=== PATIENT | female | born 1975 | race African-American/Black ===

== ENCOUNTER 2017-11-06 02:35 | Emergency (ER) | payer SELFPAY ==
--- NOTE | 2017-11-06 08:36 | RAD ---
CHEST PA AND LATERAL: Date: 11/06/17 HISTORY: 42-year-old female with history of cough. In addition, there is left rib pain and chest pain with cou ghing since Saturday. FINDINGS: Patchy alveolar parenchymal changes noted in the anterior aspect of the left lower lobe, evidence for left lower lobe pneumonia. Heart size is normal. The right lung is clear. No significant pleural eff usion. IMPRESSION: Patchy alveolar parenchymal changes anterior aspect left lower lobe, evidence for left lower lobe pne umonia. Findings were discussed with Dr. Blunt in the ER at 0740 hours. CODE CR. POS: OFF
== END 2017-11-06 04:25 | disposition home or self-care (01) ==
LOC: ERS 02:35
DX: J20.9 Acute bronchitis, unspecified (principal); Z71.6 Tobacco abuse counseling; F17.210 Nicotine dependence, cigarettes, uncomplicated; Z79.899 Other long term (current) drug therapy
CPT/HCPCS: 71046; 93005; 99406

== ENCOUNTER 2017-11-06 18:15 | Observation (INO) | payer SELFPAY ==
[2017-11-06 19:08] LABS: #Eosinphils 0.2 thou/uL (0.0-0.7); #Lymphocytes 1.5 thou/uL (1.20-3.40); #Monocytes 0.9 thou/uL (0.11-0.59); #Neutrophils 8.3 thou/uL (1.40-6.50); %Basophils 0.2 % (0.0-1.0); %Eosinophils 2.1 % (0.0-10.0); %Lymphocytes 13.9 % (21.0-51.0); %Monocytes 8.2 % (0.0-10.0); %Neutrophils 75.6 % (42.0-75.0); Hemoglobin 10.8 g/dL (12.0-16.0); Mean Corpuscular HGB CONC 35.4 g/dL (32.0-36.0); Mean Corpuscular Hemoglobin 34.4 pg (27.0-31.0); Mean Corpuscular Volume 97.3 fL (78.0-98.0); Mean Platelet Volume 6.8 fL (7.4-10.4); Platelet Count 239 thou/uL (130-400); RBC Distribution Width 14.3 % (11.5-14.5); Red Blood Cell (RBC) Count 3.13 mill/uL (4.20-5.40); White Blood Cell (WBC) Count 10.9 thou/uL (4.8-10.8)
[2017-11-06 19:15] LABS: MDiff Complete? YES; PLT Morphology Comment Appears Adequate; Polychromasia SLIGHT = 2-3 cells (100X) (0-2/hpf); Target Cells SLIGHT = 2-5 cells (100X) (0-1/hpf)
[2017-11-06 19:22] LABS: ALT (SGPT) 15 U/L (8-55); AST (SGOT) 30 U/L (5-34); Albumin 3.5 g/dL (3.5-5.0); Alkaline Phosphatase 173 U/L (40-150); Anion Gap 12 mmol/L (10-20); BUN (Urea Nitrogen) 7 mg/dL (7.0-18.7); Bilirubin, Total 1.3 mg/dL (0.2-1.2); Calc. Creatinine Clearance 0 mL/min (70-130); Calcium 8.6 mg/dL (7.8-10.44); Carbon Dioxide 24 mmol/L (22-29); Chloride 106 mmol/L (98-107); Estimated GFR-MDRD Greater than 90; Globulin 3.5 g/dL (2.4-3.5); Glucose 101 mg/dL (70-105); Potassium 3.5 mmol/L (3.5-5.1); Sodium 138 mmol/L (136-145)
[2017-11-06 19:30] LABS: Reticulocyte Count 2.5 % (0.5-1.5)
[2017-11-06] MEDS ORDERED: cefTRIAXone\\ROCEPHIN 1 GM VIAL ONE (22:04)
[2017-11-06] MEDS ORDERED: Ondansetron ODT 4 MG TAB PO PRN (23:48)
[2017-11-06] MEDS ORDERED: Docusate 100 MG CAP PO PRN (23:48)
[2017-11-06] MEDS: Albuterol Sulfate 2.5 mg/3 ml Neb NEB SCH (23:55)
[2017-11-06] MEDS ORDERED: Azithromycin 500 MG in Sodium Chloride 0.9% 250 ML 250 ML IVPB SCH (23:59)
[2017-11-07] VITALS: BMI 21.9
[2017-11-07] MEDS ORDERED: Ibuprofen 600 MG TAB PO PRN (00:11)
[2017-11-07] MEDS: Benzonatate 100 MG CAP PO PRN ×2 (00:22→07:55)
[2017-11-07] MEDS: Acetaminophen 325 MG TAB PO PRN ×2 (00:22→07:54)
--- NOTE | 2017-11-07 02:24 | PDOC.FPRHP ---
- History of Present Illness Chief Complaint: cough History of Present Illness: Patient seen and examined on 11/06/17. 42 yo BF with h/o sickle cell trait presented c/o cough and left flank/back pain since Saturday, productive of yellow sputum. (+) chills. Denies any nasal congestion, runny nose, ear pain. Mild SOB. Reports chest pain worse with deep breath, movement or coughing. Denies any ill contacts. Seen in ER earlier and diagnosed with bronchitis and given prescription for albuterol MDI, Zithromax and tessalon perles. States atht started the medication as prescribed with improvement in symptoms especially with inhaler. Patient called to return to ER due to abnormal chest X-ray showed left lower infiltrate c/w pneumnia. - Allergies/Adverse Reactions Allergies Allergy/AdvReac Type Severity Reaction Status Date / Time No Known Drug Allergies Allergy Verified 11/07/17 00:02 - Home Medications Medication Instructions Recorded Confirmed Type Iron 65 mg PO DAILY 11/07/17 11/07/17 History Naproxen Sodium [Aleve] 220 mg PO TID PRN 11/07/17 11/07/17 History - History PMHx: Sickle cell trait PSHx: BTL and finger fracture pin placement FHx: noncontributory Social: (+) tob 1/2 pack/day x 6 years; denies any alcohol or drugs - Review of Systems General: reports: fever/chills, night sweats. denies: weight/appetite/sleep changes, fatigue Eyes: denies: eye pain, vision changes ENT: denies: nasal congestion, rhinorrhea Respiratory: reports: cough, shortness of breath. denies: congestion Cardiovascular: reports: chest pain. denies: palpitation, edema, orthopnea Gastrointestinal: denies: nausea, vomiting, diarrhea, constipation, abdominal pain Genitourinary: denies: dysuria, discharge Skin: denies: rashes, lesions Musculoskeletal: denies: pain, tenderness, swelling Neurological: denies: numbness, seizure Psychological: denies: anxiety, depression - Vital signs BP: 116/63 HR: 84 RR: 18 Tmax: 98.8 Pox: 98% on RA Wt: 64 kg - Physical Exam Constitutional: NAD, awake, alert and oriented, well developed HEENT: normocephalic and atraumatic, PERRLA, EOMI, conjunctiva clear, TM's clear and intact, normal nasal mucosa, MMM, oropharynx clear Neck: supple, FROM, no LAD, no thyromegaly Heart: RRR, normal S1/S2, no murmurs/rubs/gallops, pulses present, no edema Lungs: no respiratory distress, good air movement -Lungs: (+) mild expiratory wheezes Abdomen: soft, non-tender, bowel sounds present, no masses/distention Musculoskeletal: normal structure, normal tone, ROM grossly normal Neurological: no focal deficit, CN II-XII intact Skin: no rash/lesions, good turgor Heme/Lymphatic: no unusual bruising or bleeding Psychiatric: normal mood and affect, good judgment and insight FMR H&P: Results - Labs Result Diagrams: 11/06/17 18:50 11/06/17 18:50 Lab results: WBC 10.9 thou/uL (4.8-10.8) H 11/06/17 18:50 Hgb 10.8 g/dL (12.0-16.0) L 11/06/17 18:50 Hct 30.5 % (36.0-47.0) L 11/06/17 18:50 MCV 97.3 fL (78.0-98.0) 11/06/17 18:50 Plt Count 239 thou/uL (130-400) 11/06/17 18:50 Neutrophils % 75.6 % (42.0-75.0) H 11/06/17 18:50 Sodium 138 mmol/L (136-145) 11/06/17 18:50 Potassium 3.5 mmol/L (3.5-5.1) 11/06/17 18:50 Chloride 106 mmol/L (98-107) 11/06/17 18:50 Carbon Dioxide 24 mmol/L (22-29) 11/06/17 18:50 BUN 7 mg/dL (7.0-18.7) 11/06/17 18:50 Creatinine 0.59 mg/dL (0.6-1.1) L 11/06/17 18:50 Glucose 101 mg/dL (70-105) 11/06/17 18:50 Calcium 8.6 mg/dL (7.8-10.44) 11/06/17 18:50 Total Bilirubin 1.3 mg/dL (0.2-1.2) H 11/06/17 18:50 AST 30 U/L (5-34) 11/06/17 18:50 ALT 15 U/L (8-55) 11/06/17 18:50 Alkaline Phosphatase 173 U/L (40-150) H 11/06/17 18:50 Serum Total Protein 7.0 g/dL (6.0-8.3) 11/06/17 18:50 Albumin 3.5 g/dL (3.5-5.0) 11/06/17 18:50 - Radiology Interpretation Chest x-ray Status: image reviewed by me (Left lower lobe infiltrate) FMR H&P: A/P - Problem List (1) Community acquired pneumonia Current Visit: Yes Status: Acute Code(s): J18.9 - PNEUMONIA, UNSPECIFIED ORGANISM Qualifiers: Laterality: left Lung location: lower lobe of lung Qualified Code(s): J18.1 - Lobar pneumonia, unspecified organism Assessment and Plan: Started on Rocephin and zithromax. Transition to po zithromax in AM. Albuterol nebs q6 hours. (2) Sickle cell trait Current Visit: Yes Status: Chronic Code(s): D57.3 - SICKLE-CELL TRAIT Assessment and Plan: Mild anemia; continue iron tablets - Plan Disposition/LOS: Anticipate transition to po abx and d/c home in 1-2 days FMR H&P: Upper Level - Plan Date/Time: 11/07/17 0221 I, [], have evaluated this patient and agree with findings/plan as outlined by internal control analyst resident. Pertinent changes/additions are listed here.
--- NOTE | 2017-11-07 06:07 | PDOC.FM ---
- Subjective Subjective: No events overnight. She states cough has improved and she is feeling better. She notes pain on left lower back upon deep inspiration but this has improved. She denies SOB, chest pain, NVD, or subjective fever. - Objective MAR Reviewed: Yes Vital Signs & Weight: Vital Signs (12 hours) Temp Pulse Resp BP Pulse Ox 11/06/17 23:55 81 16 98 11/06/17 23:45 97.9 F 81 20 105/71 99 11/06/17 23:25 97.9 F 81 20 Weight Weight 63.503 kg I&O: 11/05/17 11/06/17 11/07/17 06:59 06:59 06:59 Intake Total 260 Balance 260 Result Diagrams: 11/07/17 06:36 11/07/17 06:36 <Germaine Kurtz - Last Filed: 11/07/17 09:13> - Objective Vital Signs & Weight: Vital Signs (12 hours) Temp Pulse Resp BP Pulse Ox 11/07/17 08:00 98.1 F 95 16 102/66 95 11/07/17 06:42 94 16 98 11/07/17 04:00 97.5 F L 92 18 95/61 98 Weight Weight 63.503 kg I&O: 11/06/17 11/07/17 11/08/17 06:59 06:59 06:59 Intake Total 940 Balance 940 Result Diagrams: 11/07/17 06:36 11/07/17 06:36 <Ananda Moreland - Last Filed: 11/07/17 12:47> Phys Exam - Physical Examination Constitutional: NAD resting HEENT: PERRLA, moist MMs, sclera anicteric Neck: no JVD, supple, full ROM Respiratory: no wheezing, no rhonchi rales to LLL Cardiovascular: RRR, no significant murmur, no rub Gastrointestinal: soft, non-tender, no distention, positive bowel sounds Musculoskeletal: pulses present Neurological: non-focal, moves all 4 limbs Psychiatric: normal affect, A&O x 3 Skin: no rash <Germaine Kurtz - Last Filed: 11/07/17 09:13> Dx/Plan (1) Community acquired pneumonia Code(s): J18.9 - PNEUMONIA, UNSPECIFIED ORGANISM Status: Acute Qualifiers: Laterality: left Lung location: lower lobe of lung Qualified Code(s): J18.1 - Lobar pneumonia, unspecified organism (2) Hypokalemia Code(s): E87.6 - HYPOKALEMIA Status: Acute (3) Sickle cell trait Code(s): D57.3 - SICKLE-CELL TRAIT Status: Chronic - Plan Plan: This is a 42 yo F Community Acquired Pneumonia - Patient currently started on IV rocephin and azithromycin. Will discharge with omnicef and azithromycin therapy course. - Albuterol nebs q6hrs Hypokalemia - K 3.3 today. Will replace Sickle Cell Trait - Mild anemia; continue iron tablets DISPO: Discharge home on oral abx as patient is clinical improved. CODE: FULL Case discussed with Dr. Moreland <Germaine Kurtz - Last Filed: 11/07/17 09:13> Attending Addendum - Attending Addendum Date/Time: 11/07/17 1246 I personally evaluated the patient and discussed the management with Dr. Kurtz. I agree with the History, Examination, Assessment and Plan documented above with any addition or exceptions noted below. Patient admitted to obs for LLL community acquired pneumonia without complication. Her pneumonia severity index is extremely low and she is not requiring supplemental O2. She does not show signs of sepsis or end organ damage , and she feels well. WBC normalizing and afebrile. Stable for discharge home today on oral therapy. <Ananda Moreland - Last Filed: 11/07/17 12:47>
[2017-11-07] MEDS: Albuterol Sulfate 2.5 mg/3 ml Neb NEB SCH (06:42)
[2017-11-07 07:05] LABS: Hemoglobin 10.6 g/dL (12.0-16.0); Mean Corpuscular HGB CONC 36.4 g/dL (32.0-36.0); Mean Corpuscular Hemoglobin 35.1 pg (27.0-31.0); Mean Corpuscular Volume 96.6 fL (78.0-98.0); Mean Platelet Volume 6.6 fL (7.4-10.4); Platelet Count 211 thou/uL (130-400); RBC Distribution Width 14.3 % (11.5-14.5); Red Blood Cell (RBC) Count 3.02 mill/uL (4.20-5.40); White Blood Cell (WBC) Count 10.8 thou/uL (4.8-10.8)
[2017-11-07 07:18] LABS: Anion Gap 10 mmol/L (10-20); BUN (Urea Nitrogen) 5 mg/dL (7.0-18.7); Calc. Creatinine Clearance 137 mL/min (70-130); Calcium 8.4 mg/dL (7.8-10.44); Carbon Dioxide 25 mmol/L (22-29); Chloride 106 mmol/L (98-107); Estimated GFR-MDRD Greater than 90; Glucose 105 mg/dL (70-105); Potassium 3.3 mmol/L (3.5-5.1); Sodium 138 mmol/L (136-145)
[2017-11-07 07:27] LABS: #Eosinphils 0.4 thou/uL (0.0-0.7); #Lymphocytes 1.7 thou/uL (1.20-3.40); #Monocytes 0.9 thou/uL (0.11-0.59); #Neutrophils 7.8 thou/uL (1.40-6.50); %Basophils 0.3 % (0.0-1.0); %Eosinophils 3.8 % (0.0-10.0); %Lymphocytes 15.5 % (21.0-51.0); %Monocytes 8.3 % (0.0-10.0); %Neutrophils 72.2 % (42.0-75.0); Band 4 % (5-11); Eosinophils 5 % (0-10); Hemoglobin C Crystals SLIGHT (None Seen); Lymphocytes 12 % (21-51); MDiff Complete? YES; Monocytes 8 % (0-10); Neutrophil 69 % (42-75); PLT Morphology Comment Appears Adequate; Polychromasia MODERATE = 3-4 cells (100X) (0-2/hpf); Promyelocytes 1 % (0-0); Sickle Cells SLIGHT = 1-5 cells (100X) (None Seen); Target Cells MODERATE= 6-15 cells (100X) (0-1/hpf)
[2017-11-07 08:28] VITALS: BP 102/66; TEMP 98.1
[2017-11-07] MEDS ORDERED: Potassium Chloride 20 MEQ TAB PO SCH (08:45)
[2017-11-07] MEDS ORDERED: cefTRIAXone\\ROCEPHIN 1 GM in Sodium Chloride 0.9% 100 ML IVPB SCH (21:00)
--- NOTE | 2017-11-08 10:18 | DIS-2 ---
DATE OF ADMISSION: 11/06/2017 DATE OF DISCHARGE: 11/07/2017 RESIDENT: Germaine Kurtz M.D. ADMITTING ATTENDING: Dr. Jessie Wall DISCHARGE ATTENDING: Ananda Moreland M.D. CONSULTATIONS: None. PROCEDURES: Chest x-ray on 11/06/2017 showing patchy alveolar parenchymal changes in the anterior aspect of the left lower lobe, evidence for left lower lobe pneumonia. PRIMARY DIAGNOSES: Community-acquired pneumonia. SECONDARY DIAGNOSES: Sickle cell trait. DISCHARGE MEDICATIONS: 1. Azithromycin 500 mg oral daily for 1 day 2. Azithromycin 250 mg oral daily days 2-5 3. Cefdinir 300 mg oral q.12 hours for 5 days. 4. Naproxen sodium (Aleve) 220 mg oral 3 times daily as needed. 5. Iron 65 mg oral daily. DISCONTINUED MEDICATIONS: None. HISTORY OF PRESENT ILLNESS AND HOSPITAL COURSE: This is a 42-year-old female with history of sickle cell trait who presented to the ED with cough, left flank pain and yellow sputum. She was diagnosed with bronchitis and given albuterol MDI, Zithromax and Tessalon Perles and was discharged from the ED. She was then called to return to the ED due to abnormal chest x-ray showing left lower lobe infiltrate consistent with pneumonia. The patient's vital signs were within normal limits. The patient was admitted to the hospital and started on Rocephin and Zithromax and given albuterol nebs q.6h. The patient's potassium was found to be low at 3.3 today and was replaced. Upon discharge, she was clinically better. She was discharged with Omnicef and azithromycin therapy. DISPOSITION: Stable. DISCHARGE INSTRUCTIONS: 1. Location: Home. 2. Diet: Regular. 3. Activity: Ad divya. 4. Followup: Follow up with PCP within 7 days. [facility]
== END 2017-11-07 10:25 | disposition home or self-care (01) ==
LOC: ERS 18:15 → INTOOBSV 23:20 → T4-A 23:20
PROVIDERS: ADMIT Family Medicine; ATTEND Family Medicine
DX: J18.1 Lobar pneumonia, unspecified organism (principal); D57.3 Sickle-cell trait; E87.6 Hypokalemia; F17.210 Nicotine dependence, cigarettes, uncomplicated; Z79.899 Other long term (current) drug therapy
CPT/HCPCS: 36415; 80048; 80053; 83615; 84145; 85025; 85046; 87040; 94640; 96365; 96366; 96367; 99406; G0378; J0456; J0696; J7050; J7611

== ENCOUNTER 2019-12-19 07:35 | Emergency (ER) | payer SELFPAY ==
[2019-12-19] MEDS ORDERED: Cyclobenzaprine 10 MG TAB ONE (10:25)
[2019-12-19] MEDS ORDERED: Boostrix 0.5 ML VIAL ONE (10:25)
[2019-12-19] MEDS ORDERED: Ketorolac Tromethamine 30 MG/ML VIAL ONE (10:25)
== END 2019-12-19 11:05 | disposition home or self-care (01) ==
LOC: ERS 07:35
DX: T22.111A Burn of first degree of right forearm, initial encounter (principal); M79.10 Myalgia, unspecified site; T31.0 Burns involving less than 10% of body surface; F17.210 Nicotine dependence, cigarettes, uncomplicated; D50.9 Iron deficiency anemia, unspecified
CPT/HCPCS: 90471; 90715; 96372; J1885